=== PATIENT | female | born 1970 | race Caucasian/White ===

== ENCOUNTER 2017-04-14 19:17 | Emergency (ER) | payer MEDICAID, OTHER ==
[2017-04-14] MEDS: LORAZEPAM 0.5 MG TAB PO (22:40)
[2017-04-14] MEDS: HYDROCODONE/APAP (5/325) TAB PO (22:41)
== END 2017-04-14 23:20 | disposition home or self-care (01) ==
LOC: FTE 19:17
DX: S06.0X0A Concussion without loss of consciousness, initial encounter (principal); Y04.8XXA Assault by other bodily force, initial encounter
CPT/HCPCS: 70450; 72125; 99285-25

== ENCOUNTER 2017-05-31 12:43 | Emergency (ER) | payer MEDICAID | END 2017-05-31 15:22 | disposition home or self-care (01) | LOC: E/R 12:43 → FTE 15:22 | DX: J32.9 Chronic sinusitis, unspecified (principal) | CPT/HCPCS: 70450; 99284-25 ==